=== PATIENT | female | born 1985 | race Hispanic/Latino ===

== ENCOUNTER 2016-04-11 11:24 | Emergency (ER) | payer OTHER ==
--- NOTE | 2016-04-11 11:40 | ED.REPORT ---
HPI-NVD Date of Service Apr 11, 2016 ED Provider: History of Present Illness: lost voice after vomiting. vomit 4 times and watery diarrhea, many times, too many to count per patient primary care is parisa at the [address] [place] [address] in [place]. patient is on her cell on entrance into exam room Nursing Notes Stated Complaint: NAUSEA,VOMITING,DIARRHEA Nursing Notes Reviewed: Yes Allergies: Coded Allergies: No Known Allergies (Unverified , 04/11/16) General Time Seen by MD: 11:39 Chief Complaint Nausea, Vomiting, Diarrhea Hx Obtained From: Patient Onset Occurred: 13 - 16 hours ago Symptom Duration: Since onset Past Medical History Past Medical History Denies: Asthma, Diabetes mellitus Past Surgical History Reports: Smoking History Never Smoker Social History Alcohol Use: Denies alcohol use Drug Use: Denies drug use Other Social History: Occupation works at [employer] 04/11/2016 Ambulatory Status Independent Review of Systems Basic Review of Systems Eyes: Vision NL, No discharge Respiratory: No shortness of breath, No cough, No wheeze Cardiovascular: No chest pain, No dyspnea on exertion, No orthopnea, No parox noct dyspnea, No palpitations : No dysuria, No frequency Musculoskeletal: No extremity swelling, No extremity pain, Full range of motion , Joints NL Hematologic: No bleeding, No bruising Endocrine: No cold intolerance, No heat intolerance, No weight gain, No weight loss Allergy / Immune: No allergy Psychiatric: Normal thought content Physical Exam Initial Vital Signs Vital Signs (First) Date Time Temp Pulse Resp B/P Pulse Ox O2 Delivery O2 Flow Rate FiO2 04/11/16 11:42 37.1 115 16 115/79 98 Room Air Initial VS: Reviewed, Vital signs normal Head / Eyes: Atraumatic, Normocephalic, PERRL ENT: Mucous membranes moist, Conjunctiva normal, No scleral icterus Neck: Supple, Non-tender, Full range of motion Respiratory: Breath sounds normal, Clear to auscultation, No respiratory distress Cardiovascular: Regular rate & rhythm, Heart sounds normal, Intact distal pulses Back: No CVA tenderness Lymphatic: No lymphadenopathy Extremities: Vascular intact, Neuro intact, No swelling, No tenderness Skin: Warm, Dry, No cyanosis Neurologic: Alert, Oriented, Nonfocal Psychiatric: Mood/affect normal, Behavior normal, Normal thought content General/Constitutional: Awake, Alert, No acute distress, Well appearing, Well developed, Well hydrated Abdomen: Atraumatic, Soft, Non-tender, McBurney's non-tender patient points to right lower quadrant as pain area, non tender on exam Cardiovascular: Heart rate NL, Regular rhythm, Heart sounds NL, No gallop Back: Atraumatic, Inspection NL, Full range of motion, Painless range of motion Interpretation & Diagnostics Interpretation & Diagnostics: titi: Liver is normal in size and homogeneous in echotexture. Gallbladder: There is a large mobile gallstone measuring up to 2 cm. No gallbladder wall thickening, pericholecystic fluid, or sonographic Parker's sign. Biliary ducts: Intrahepatic bile ducts are non-dilated. Extrahepatic bile duct caliber measures 3-4 mm. Normal is 6-7 mm or less in diameter, or 10 mm or less post-cholecystectomy. Pancreas: Visualized portions of the pancreas are sonographically normal. Spleen: Spleen is normal in size and homogeneous in echotexture. Kidneys: Right kidney measures 10.8 cm long; left kidney measures 11.3 cm long. No hydronephrosis. Aorta: Visualized aorta is normal in caliber at less than 3 cm. Iliacs: Proximal common iliac arteries are normal in caliber at less than 2.5 cm. IVC: Intrahepatic inferior vena cava is patent. Miscellaneous: No free abdominal fluid. IMPRESSION: 1. Cholelithiasis without evidence of cholecystitis. Dictated by: Vern Quiroga M.D. on 04/11/2016 at 13:53 Approved by: Vern Quiroga M.D. on 04/11/2016 at 13:53 Lab Results Interpretation Result Diagram: 04/11/16 1158 04/11/16 1158 Test 04/11/16 11:58 White Blood Count 11.3th/mm3 (3.8-10.1) Red Blood Count 4.41mil/mm3 (3.90-5.20) Hemoglobin 12.5g/dL (12.0-15.6) Hematocrit 38.9% (35.0-46.0) Mean Corpuscular Volume 88.2fL (81-100) Mean Corpuscular Hemoglobin 28.3pg (27.0-35.0) Mean Corpuscular Hemoglobin Concent 32.1% (32.0-37.0) Red Cell Distribution Width 13.2% (12.3-15.4) Platelet Count 408bil/L (150-400) Neutrophils (%) (Auto) 87.0% (40-74) Lymphocytes (%) (Auto) 8.1% (14-46) Monocytes (%) (Auto) 4.1% (4-12) Eosinophils (%) (Auto) 0.6% (0-5) Basophils (%) (Auto) 0.1% (0-3) Sodium Level 139mEq/L (134-144) Potassium Level 3.9mEq/L (3.5-5.2) Chloride Level 100mEq/L (97-108) Carbon Dioxide Level 25mmol/L (18-29) Blood Urea Nitrogen 13mg/dL (6-20) Creatinine 0.60mg/dL (0.57-1.00) Estimat Glomerular Filtration Rate 171mL/min (>59) Glucose Level 110mg/dL (60-99) Calcium Level 9.0mg/dL (8.5-10.1) Total Bilirubin 0.4mg/dL (0.0-1.2) Aspartate Amino Transf (AST/SGOT) 12U/L (0-50) Alanine Aminotransferase (ALT/SGPT) 11U/L (0-32) Alkaline Phosphatase 64U/L (25-150) Total Protein 8.4g/dL (6.4-8.4) Albumin 4.1g/dL (3.4-5.0) Lab Results Interpretation: TECHNIQUE: Real-time focused scanning was performed of the abdomen with attention to the appendix, with image documentation. COMPARISON: None. FINDINGS: Appendix visualization: There is a blind ending tubular fluid filled compressible structure in the right lower quadrant compatible with the appendix. Appendix measurements: Appendix measures up to 5 mm distally. No evidence of wall thickening. Associated findings: Echogenic fat: Not identified Appendiceal compressibility: Compressible Appendicoliths: Not identified. Nearby free fluid: Not present. Lymphadenopathy: Not identified. Tenderness on exam: Mild tenderness on exam. IMPRESSION: 1. Normal-appearing appendix demonstrated in the right lower quadrant without evidence of free fluid. Dictated by: Vern Quiroga M.D. on 04/11/2016 at 14:02 Approved by: Vern Qurioga M.D. on 04/11/2016 at 14:02 Re-Eval/Medical Decision Med Decision/Clinical Course Patient provided stool collection basin on arrival and is unable to provide stool. Urine is light yellow and clear, no evidence of ketones. No vomiting in ER Discharge & Departure Impression: Primary Impression: Vomiting Vomiting type: unspecified Disposition: Home Patient Instructions: Acute Nausea and Vomiting (ED) Additional Instructions: Your labs are normal. The ultrasound does show a gall stone but it is not impacted and there is no wall thickening. The appendix is normal. The urine is beautiful. You are not . You can use zofran 4 mg up to 2 times a day as needed for nausea and vomiting. Please follow with primary care for a recheck. EDSupervising Provider for APC: Mihai Caballero MD, Sue ARNP Apr 11, 2016 11:40
[2016-04-11 11:42] VITALS: BP 115/79; PULSE 115; RESP 16; O2SAT 98
[2016-04-11] MEDS ORDERED: 0.9% Sodium Chloride 1,000 ML IV ONE (11:50)
[2016-04-11] MEDS ORDERED: Ondansetron 2 mg/mL 2 mL Inj IVPUSH ONE (11:50)
[2016-04-11 12:01] LABS: BASOPHILS % (AUTO) 0.1 % (0-3); EOSINOPHILS % (AUTO) 0.6 % (0-5); MONOCYTES % (AUTO) 4.1 % (4-12); Mean Corpuscular Hemoglobin 28.3 pg (27.0-35.0); Mean Corpuscular Volume 88.2 fL (81-100); Platelet Count 408 bil/L (150-400)
--- NOTE | 2016-04-11 13:55 | DRSVH ---
PROCEDURE: US ABDOMEN ([id number]) INDICATIONS: Right lower abdominal pain. TECHNIQUE: Real-time scanning was performed of the abdominal and retroperitoneal organs, with image documentatio n. COMPARISON: None. FINDINGS: Liver: Liver is normal in size and homogeneous in echotexture. Gallbladder: There is a large mobile gallstone measuring up to 2 cm. No gallbladder wall thickening, pericholecystic fluid, or sonographic Parker's sign. Biliary ducts: Intrahepatic bile ducts are non-dilated. Extrahepatic bile duct caliber measures 3-4 mm. Normal is 6-7 mm or less in diameter, or 10 mm or less post-cholecystectomy. Pancreas: Visualized portions of the pancreas are sonographically normal. Spleen: Spleen is normal in size and homogeneous in echotexture. Kidneys: Right kidney measures 10.8 cm long; left kidney measures 11.3 cm long. No hydronephrosis. Aorta: Visualized aorta is normal in caliber at less than 3 cm. Iliacs: Proximal common iliac arteries are normal in caliber at less than 2.5 cm. IVC: Intrahepatic inferior vena cava is patent. Miscellaneous: No free abdominal fluid. IMPRESSION: 1. Cholelithiasis without evidence of cholecystitis. Dictated by: Vern Quiroga M.D. on 04/11/2016 at 13:53 Approved by: Vern Quiroga M.D. on 04/11/2016 at 13:53
--- NOTE | 2016-04-11 14:03 | DRSVH ---
PROCEDURE: US APPENDIX INDICATIONS: Right lower abdominal pain. TECHNIQUE: Real-time focused scanning was performed of the abdomen with attention to the appendix, with image do cumentation. COMPARISON: None. FINDINGS: Appendix visualization: There is a blind ending tubular fluid filled compressible structure in the ri t lower quadrant compatible with the appendix. Appendix measurements: Appendix measures up to 5 mm distally. No evidence of wall thickening. Associated findings: Echogenic fat: Not identified Appendiceal compressibility: Compressible Appendicoliths: Not identified. Nearby free fluid: Not present. Lymphadenopathy: Not identified. Tenderness on exam: Mild tenderness on exam. IMPRESSION: 1. Normal-appearing appendix demonstrated in the right lower quadrant without evidence of free fluid . Dictated by: Vern Quiroga M.D. on 04/11/2016 at 14:02 Approved by: Vern Quiroga M.D. on 04/11/2016 at 14:02
[2016-04-11 15:27] VITALS: BP 108/72; PULSE 66; RESP 12
== END 2016-04-11 15:32 | disposition home or self-care (01) ==
LOC: EDBD 11:24 → SED 11:24
DX: K80.20 Calculus of gallbladder without cholecystitis without obstruction (principal)
CPT/HCPCS: 36415; 76700; 76705; 80053; 81002; 81025; 85025; 96361; 96374; 96375; 99285; J2405; J7030